=== PATIENT | female | born 1995 | race African-American/Black ===

== ENCOUNTER 2021-03-06 06:58 | Day surgery (SDC) | payer OTHER ==
[~2021-03-06] VITALS: Ht 162.6 cm; Wt 61.8 kg
[2021-03-06] MEDS ORDERED: IRON TABLETS325 MG PO (07:38)
[2021-03-06] MEDS ORDERED: METAMUCIL3.4 GM/DOS PO (07:38)
[2021-03-06 08:06] VITALS: BP 113/68; PULSE 55; TEMP 98
[2021-03-06 08:40] VITALS: BP 114/78; PULSE 50; TEMP 97.7
--- NOTE | 2021-03-06 08:40 | NUR ---
Patient arrives to [facility] [address] via cart, accompanied by Endo RN Vianney Esquivel. She is drowsy, but awakens and converses with staff. She denies any pain or nausea. PIV to TKO. Monitoring is applied - VSS and WNL on room air.
[2021-03-06 08:55] VITALS: BP 116/75; PULSE 67
--- NOTE | 2021-03-06 08:55 | NUR ---
Patient is resting comfortably. She denies pain or nausea. She requests and receives apple juice. VSS on room air.
[2021-03-06 09:10] VITALS: BP 120/81; PULSE 55
--- NOTE | 2021-03-06 09:30 | NUR ---
Patient has met discharge criteria. Discharge instructions are discussed. She denies any questions and verbalizes understanding. PIV is removed with catheter intact and hemostasis achieved. She changes to her clothing independently. She is escorted to the exit via wheelchair by staff and discharged to home to the care of her friend Lazaro, who drives her home in a private vehicle at 0930.
== END 2021-03-06 09:30 | disposition home or self-care (01) ==
LOC: SDCO 06:58
DX: T18.198A Other foreign object in esophagus causing other injury, initial encounter (principal); D64.9 Anemia, unspecified; Z20.822 Contact with and (suspected) exposure to COVID-19
CPT/HCPCS: J2704; J3010; J7030